=== PATIENT | female | born 1945 | race Caucasian/White ===

== ENCOUNTER 2024-01-12 06:32 | Observation (INO) ==
--- NOTE | 2023-12-21 11:17 | PAT Medication Instructions ---
Medication Instructions Date of Service December 21, 2023 Home Medications ascorbate calcium (vitamin C) 500 mg tablet 500 mg PO QAM atenolol 25 mg tablet 25 mg PO QAM multivitamin 1 tab PO QAM polyethylene glycol 3350 17 gram/dose oral powder (Miralax) 17 g PO QAM zolpidem 10 mg tablet 5 mg PO HS PRN Sleep cetirizine 10 mg capsule (Zyrtec) 10 mg PO DAILY PRN Allergy Symptoms cholecalciferol (vitamin D3) 125 mcg (5,000 unit) tablet (Vitamin D3) 125 mcg PO QAM hydrochlorothiazide 25 mg tablet 25 mg PO QAM magnesium 250 mg tablet 250 mg PO HS MEDICATION INSTRUCTIONS: DO NOT take the morning of surgery ascorbate calcium (vitamin C) 500 mg tablet 500 mg PO QAM multivitamin 1 tab PO QAM polyethylene glycol 3350 17 gram/dose oral powder (Miralax) 17 g PO QAM cetirizine 10 mg capsule (Zyrtec) 10 mg PO DAILY PRN Allergy Symptoms cholecalciferol (vitamin D3) 125 mcg (5,000 unit) tablet (Vitamin D3) 125 mcg PO QAM hydrochlorothiazide 25 mg tablet 25 mg PO QAM Take morning of surgery With a small sip of water, OTHERWISE NOTHING TO EAT OR DRINK AFTER MIDNIGHT: atenolol 25 mg tablet 25 mg PO QAM Take evening before surgery zolpidem 10 mg tablet 5 mg PO HS PRN Sleep magnesium 250 mg tablet 250 mg PO HS Other Notes If you have any questions please call us at [phone] or [phone] or [phone] or [phone]
--- NOTE | 2023-12-28 15:04 | Anesthesiology Consultation ---
Date of Service December 28, 2023 Assessment & Plan (1) Encounter for pre-operative examination: - Infectious disease screening: Per assessment on 12/28/23: No known infectious disease contacts or current infectious disease symptoms. No noted recent Covid positive test result. - Cardiology visit (06/13/23): "Patient presents for preoperative cardiac evaluation prior to right total knee replacement.. I reviewed her ECGs and prev ious ECGs which showed sinus rhythm with nonspecific ST abnormalities in the lateral leads overall no significant change compared to prior ECGs.. - Patient doing well today. She denies chest pain, dyspnea, syncope. On clinical exam she is euvolemic. She is easily able to get to more than 4 Mets of activity without any exertional symptoms. She has nonspecific ST abnormalities in the lateral leads which were present on her previous EKG in 2019 and have not worsened or changed. Patient is asymptomatic from a cardiac standpoint and very active as she exercises up to 3 times a week at her gym. She is low risk from cardiac standpoint for her right total knee replacement." - Outpatient joint assessment: Pt currently scheduled for inpatient pathway. If surgeon requests review for outpatient joint pathway, patient is not recommended candidate for outpatient joint program from anesthesia standpoint based upon available information. Chart Review Chart Review: Acceptable Risk for Surgery and Patient seen in Pre Admission Testing Teaching & Discussion Pre-Anesthesia Teaching/Discussion Notes: Instructed NPO after midnight before surgery,except medications with 15 cc of water. Medication instructions provided according to the PAT guidelines. History Surgery Operation Date: 01/12/24 08:50 Proposed Procedures p Right Total Knee Arthroplasty - Randy Zapata MD Height/Weight Height: 5 ft 5 in Weight: 75.5 kg Allergies Allergy/AdvReac Type Severity Reaction Status Date / Time Penicillins Allergy red Verified 12/19/23 14:02 splotchy face, rash Sulfa (Sulfonamide Allergy red Verified 12/19/23 14:02 Antibiotics) splotchy face, rash Medications Home Medications Medication Instructions Recorded Confirmed Last Taken ascorbate calcium (vitamin C) 500 500 mg PO QAM 01/05/21 12/19/23 Unknown mg tablet atenolol 25 mg tablet 25 mg PO QAM 01/05/21 12/19/23 Unknown multivitamin 1 tab PO QAM 01/05/21 12/19/23 Unknown polyethylene glycol 3350 17 17 g PO QAM 01/05/21 12/19/23 Unknown gram/dose oral powder (Miralax) zolpidem 10 mg tablet 5 mg PO HS PRN Sleep 01/05/21 12/19/23 Unknown cetirizine 10 mg capsule (Zyrtec) 10 mg PO DAILY PRN Allergy Symptoms 12/19/23 12/19/23 Unknown cholecalciferol (vitamin D3) 125 125 mcg PO QAM 12/19/23 12/19/23 Unknown mcg (5,000 unit) tablet (Vitamin D3) hydrochlorothiazide 25 mg tablet 25 mg PO QAM 12/19/23 12/19/23 Unknown magnesium 250 mg tablet 250 mg PO HS 12/19/23 12/19/23 Unknown Fosamax WK 12/28/23 Unknown Past Medical History Medical History BCC (basal cell carcinoma of skin) s/p Mohs (face) CKD (chronic kidney disease) Stage III Hiatal hernia "small" History of COVID-2019, taken to [facility] overnight; dehydrated, syncope, altered taste/smell>resolved w/altered taste/smell 07/2023 (home test)- mild cold symptoms for 2 days > resolved History of neuropathy BL LEs History of palpitations Chronic/long-term issue s/p cardio workup including holter monitor (most recent 2012)- no significant findings Reason for Atenolol Hx of basal cell carcinoma Hypertension Kidney cysts Under surveillance Right knee DJD TMJ arthritis No clicking/locking, previous "severe headaches" Urinary incontinence Occasional Exercise / Class Metabolic Activity II 4-5 Yardwork/Stairs/Walk up hill (one FS: No CP, no SOB) Past Family History Family History Sister Breast cancer Father Cancer Colorectal cancer Brother Cancer Aunt Diabetes Brother Diabetes Past Surgical History Surgical History H/O colonoscopy History of Mohs micrographic surgery for skin cancer BCC (face) Hx of basal cell carcinoma excision back Hx of unilateral oophorectomy age 9, rt side due to dermoid cyst on ovary and appendix removed at the same time [place] teeth extracted Past Anesthesia History No Hx of Anesthesia Complications and No Family Hx of Anesthesia Complications History of PONV No Hx of PONV and No Hx of Motion Sickness Social History Smoking Status: Never smoker Do You Dip or Chew Tobacco: No Hx Alcohol Use: No Hx Substance Use: No substance use type: does not use Review of Systems Patient denies chest pain, shortness of breath, dyspnea on exertion, fever, chills, cough, wheezing. Physical Exam Vital Signs BP 168/83 P 73 TEMP 98.2 SP02 94%RA RESP 16 Physical Full cervical extension range of motion. Full TMJ range of motion. TMD 3 finger breaths Mallampati Score 3 Dentition: intact, + crowns (sides) Lungs: clear throughout to auscultation Cardiac: regular rate and rhythm, no murmurs noted Spine: normal Carotid arteries: negative bruit Extremities: no LE edema Lab Results Anesthesia Preop Results Results Anesthesia Widget: WBC 9.09 K/ul (4.8-10.8) 12/28/23 Hgb 13.6 g/dl (12.0-16.0) 12/28/23 Hct 41.4 % (37.0-47.0) 12/28/23 Plt 336 K/uL (130-400) 12/28/23 Na 136 mmol/L (136-145) 12/28/23 K 3.9 mmol/L (3.5-5.1) 12/28/23 Cl 101 mmol/L (98-107) 12/28/23 CO2 27 mmol/L (21-32) 12/28/23 BUN 24 mg/dl (6-23) H 12/28/23 Creat 1.01 mg/dl (0.6-1.2) 12/28/23 Glucose Level 102 mg/dl (70-99(Fasting)) H 12/28/23 PT 10.6 Seconds (9.0-12.0) 12/28/23 PTT 28 Seconds (21-31) 12/28/23 INR 1.0 (0.9-1.1) 12/28/23 Blood Type O Negative 12/28/23 Antibody Screen NEGATIVE 12/28/23 Testing Electrocardiogram Date: 06/05/[address]/TWA, consider lateral ischemia. No significant change compared to 10/05/2020 per [facility] drm consultant comparison. EKG reviewed at cardiology office visit 06/13/23* Chest X-Ray Date: 12/28/23 FINDINGS: Lung volumes are normal. Lungs are clear. There is no pneumothorax or pleural effusion. Cardiac size is normal. Mediastinal contours are normal. There is no evidence for pulmonary edema. IMPRESSION: No acute cardiopulmonary findings.
[~2024-01-12 06:32] MED LIST: BUPIVACAINE 0.5 % 5 MG/1 ML PF 10ML VIAL ONE; ROPIVACAINE 0.5% 5 MG/ML 30 ML VIAL ONE
--- NOTE | 2024-01-12 06:54 | History & Physical Bridge Note ---
Date of Service January 12, 2024 History & Physical Bridge Note I have examined the patient, reviewed the History & Physical and in the interval since the performance of the History & Physical I have noted the following changes of clinical significance: no changes noted
[2024-01-12] MEDS: ACETAMINOPHEN 500 MG TAB PO SCH ×2 (07:20→15:11)
[2024-01-12] MEDS: METOCLOPRAMIDE HCL 10 MG TABLET PO SCH (07:21)
[2024-01-12] MEDS: LR 60ML/HR IV SCH (07:21)
[2024-01-12] MEDS: FAMOTIDINE 20 MG TAB PO SCH (07:21)
[2024-01-12] MEDS: dexAMETHasone**PF** 10 MG/ML VIAL IV SCH (07:21)
[2024-01-12] MEDS: LR 500ML BOLUS, THEN 15ML/HR IV SCH (07:21)
[2024-01-12] MEDS: ALLERGY Noted to ORDERED Medication SCH (07:22)
[2024-01-12] MEDS ORDERED: MIDAZOLAM HCL 1 MG/ML 2ML VIAL ONE (08:11)
[2024-01-12] MEDS ORDERED: fentaNYL citrate PF 100 MCG/2 ML VIAL ONE (08:11)
[2024-01-12] MEDS ORDERED: PROPOFOL IV EMULSION 10 MG/ML 20 ML VIAL IV ONE (08:30)
[2024-01-12] MEDS: ceFAZolin 2000MG 2,000 MG/15 ML SYR IV SCH (09:12)
[2024-01-12] MEDS: TRANEXAMIC ACID 1,000 MG **IV Intra-op IV SCH (10:06)
[2024-01-12] MEDS: ORTHO JOINT ANESTHETIC ONE (10:09)
[2024-01-12] MEDS ORDERED: ePHEDrine sulfate 50 MG/ML AMP ONE (10:17)
[2024-01-12] MEDS: ROPIV 0.5% 246mg, Ketorolac 30mg, EPINEPHrine 0.5mg in NSS INFIL SCH (10:32)
--- NOTE | 2024-01-12 10:56 | Operative Report ---
PG Post Operative Report Pre & Post Diagnosis Operation Date: 01/12/24 08:50 Pre-Op Diagnosis: Right Knee Degenerative Joint Disease Post-Op Diagnosis: Right Knee Degenerative Joint Disease I identified the patient and participated in the time-out.: Yes Procedure Operation Date: 01/12/24 08:50 Actual Procedures p Right Total Knee Arthroplasty(Right) - Randy Zapata MD Surgeon Randy Zapata MD Senior Qa Tester Jose Stout PA-C Estimated Blood Loss 50 Findings Consistent with Post-Op Diagnosis Operative findings were advanced right knee DJD. She had extensive grade 4 [id number] disease of the medial and patellofemoral compartments. Less severe disease laterally. She had a varus deformity to her knee. Osteophytes primarily medially. Fairly diffuse osteopenia. Specimens Right knee sent for pathology. Anesthesia Type Spinal MAC Complications none Disposition Accompanied Patient To Recovery: No Indications Patient is 78-year-old female is had a several year history of increasing right knee pain discomfort. She been through extensive conservative treatments became less successful over time. X-rays show advanced right knee DJD. She was actually scheduled for knee replacement on multiple occasions elsewhere but canceled. She is now elected to proceed with total knee arthroplasty at our institution. Description of Procedure Operative implants consisted of: 1 Biomet Vanguard size 65 right Po stabilized femoral component. 2. Biomet size 67 tibial tray. 3. 10 mm post stabilized polyethylene insert. 4. 28 x 8 all poly patella. The patient was taken the operating, identified, placed on the operating table in the supine position. All contact areas were appropriately padded. IV antibiotics arrived by the anesthesia team. A spinal anesthetic and abductor canal block had been provided in the holding area. A Bryant catheter was placed in sterile fashion. Right Tetrick was then placed in the right lower extremities then prepped and draped in usual sterile fashion. The right leg was elevated and exsanguinated with use of an Esmarch and tourniquet placed at 300 mmHg. An anterior approach to the right knee was then performed to longitudinal incision centered over the patella. Sharp dissection was carried through subcutaneous tissue down the extensor mechanism. Medial parapatellar arthrotomy incision was made. Some subperiosteal dissection was carried out medially. The fat pad was resected from Neath patella tendon. Lateral patellofemoral ligament was released. Patella subluxated laterally knee was flexed. The osteophytes were taken off the distal femur. The ACL and PCL were then released from distal femur the tibia subluxated anteriorly. The external treatment line jig was then placed the interface the tibia and adjusted 14 mm medially. Proximal tibial cut was made to take about a millimeter or 2 of bone from the medial side. Tibia sized to a size 67. Attention drawn the femur. The distal femur then with a sharp drill. Intramedullary canal was suction. A right 5 degree valgus cutting guide was placed. The distal femoral cutting block was pinned in place. Distal femoral cut was made take an additional 3 mm of bone off distal femur. The femur was then sized. We downsize this to a 67.5 from close to a 70. The AP cutting block was pinned parallel to the epicondylar axis which was 3 degrees of external rotation. The anterior cut, anterior chamfer, posterior cut, posterior chamfer cuts were made. I then went to place the box cutting guide and it really looks to wide on the medial lateral dimensions. Therefore I assessed the anterior cortex and felt I could downsize this to a size 65 without change in the flexion or extension gap. The 65 cutting block was placed. I then just recut the anterior and anterior chamfer cuts. Great care was taken to prevent notching of the anterior femur. The box cutting guide was then placed and the box cut was made. The knee was flexed. The remnants of the medial and lateral menisci were excised. The osteophytes taken off the posterior aspect the femur. A trial femoral component was placed for the tibial tray was pinned Smita external rotation and the drill and stem punch used to create defect in proximal tibia for the tibial tray. Knee was then trialed and the 10 mm insert fit most appropriately. Attention drawn the patella. The patella was cleaned of all soft tissues. Patella thickness measured 21 mm in thickness. It was cut down to about to 14. Was sized to a size 28 patella. The locals were drilled for the 28 patella. The lateral osteophyte was removed. Patella button was placed. Knee was taken through range of motion and the patella tracked nicely with no thumbs test. Attention drawn to placing permanent components. Nupathe all trial components were removed. A bone plug was placed in the distal femur limit blood loss. A double batch [place] G cement was mixed. [employer] Vanguard size 65 right Po stabilized femoral component, size 67 the tibial tray, a 10 mm post stabilized polyethylene insert, and a 28 x 8 all poly patella then cemented in place. The knee was brought out into full extension till cement hardened. Final cement check was then performed. The pericapsular tissues were injected with total of 100 cc of orthopedic joint mix. The patient did receive 1 g tranexamic acid. The tourniq uet was then let down for final tourniquet time of 49 minutes. Hemostasis assured use electrocautery. Extensor Meclomen closed with combination 1 PDS suture #1 Vicryl suture in a [id number] fashion. Extensor Meclomen checked found to be intact the subcutaneous tissue was then closed with 2 Dexon suture in a buried and interrupted fashion. Skin was closed skin donnie. Leg was then cleaned and dried and a sterile dressing with Xeroform, 4 fours, sterile cast padding, Gigi bandage were applied. Patient then transferred to the recovery room in stable condition. The patient tolerated the procedure well and there were no complications. Jose Stout, my physician assistant to the director, was present for the entire procedure. His assistance was essential and required for appropriate patient positioning, prepping and draping, surgical exposure, performing the technical details of the operation, placement the implants, closure of the wound, and placement of the sterile bandage. I attest to the content of the Intraoperative Record and any orders documented therein. Any exceptions are noted below.
--- NOTE | 2024-01-12 11:21 | Anesthesiology Progress Note ---
Date of Service January 12, 2024 Anesthesia Post Procedure Vital Signs Vital Signs: Temp Pulse Resp BP Pulse Ox O2 Del Method O2 Flow Rate 01/12/24 11:10 90 20 115/48 L 100 Room Air 01/12/24 11:00 85 19 123/53 L 100 Oxymask 6 01/12/24 10:52 36 C L 86 23 95/41 L 100 Oxymask 6 01/12/24 07:06 36.9 C 65 20 179/88 H 97 Room Air Notes Mental Status: alert / awake / arousable Patient Amnestic to Procedure: Yes Nausea / Vomiting: adequately controlled Pain: adequately controlled Airway Patency, RR, SpO2: stable & adequate BP & HR: stable & adequate Hydration State: stable & adequate Neuraxial Anesthesia: was administered and sensory block is resolving Anesthetic Complications: no major complications apparent
--- NOTE | 2024-01-12 11:44 | XRay Report ---
RIGHT KNEE 2 VIEWS History: Right total knee arthroplasty. Degenerative arthritis. Postop. FINDINGS: The patient is status post a right total knee arthroplasty. The hardware is intact. No frac ture or dislocation. Skin donnie are in place. IMPRESSION: Right total knee arthroplasty. No evidence for hardware complication. ACT 112: Negative or not required by law. Electronically signed by: Andrez Ponce M.D. 01/12/2024 11:43 AM
[2024-01-12] MEDS ORDERED: MAGNESIUM HYDROXIDE SUSP 30 ML UDC PO PRN (12:24)
[2024-01-12] MEDS ORDERED: METOCLOPRAMIDE HCL INJ 5 MG/ML 2 ML VIAL IV PRN (12:24)
[2024-01-12] MEDS ORDERED: bisacodyL 10 MG SUPP PR PRN (12:24)
[2024-01-12] MEDS ORDERED: ALUMINUM/MAGNESIUM SUSP 30 ML UDC PO PRN (12:24)
[2024-01-12] MEDS ORDERED: ONDANSETRON INJ 2 MG/ML 2 ML VIAL IV PRN (12:24)
[2024-01-12] MEDS ORDERED: NALOXONE HCL 0.4 MG/1 ML VIAL/CARP IV PRN (12:24)
[2024-01-12] MEDS ORDERED: HYDROmorphone INJ 0.5 MG/0.5 ML SYR IV PRN (12:24)
[2024-01-12] MEDS ORDERED: CETIRIZINE HCL 10 MG TABLET PO PRN (12:34)
[2024-01-12] MEDS: KETOROLAC TROMETHAMINE 15 MG/ML VIAL IV SCH (13:24)
[2024-01-12] MEDS: SODIUM CHLORIDE 0.9% 1,000 ML IV SCH (13:24)
[2024-01-12] MEDS: TRANEXAMIC ACID / 0.7% NACL 1,000 MG/100 ML BAG IV SCH (16:55)
[2024-01-12] MEDS: ASCORBIC ACID 500 MG TAB PO SCH (16:55)
[2024-01-12] MEDS: ceFAZolin 1000MG 1,000 MG/7.5 ML SYR IV SCH (16:55)
[2024-01-12] MEDS: ASPIRIN 81 MG ECTAB PO SCH (20:29)
[2024-01-12] MEDS: SENNA 8.6 MG TAB PO SCH ×2 (20:29→20:32)
[2024-01-12] MEDS: MAGNESIUM OXIDE 400 MG TAB PO SCH (20:29)
[2024-01-12] MEDS: DOCUSATE SODIUM 100 MG CAP PO SCH (20:30)
[2024-01-12] MEDS: ZOLPIDEM TARTRATE 5 MG TAB PO PRN (23:04)
--- OUTSIDE RECORDS SUMMARY | 2024-01-13 03:31 | External Medical Summary | Summary of Care ---
Author Name Unknown Organization [facility] Address [address] [address] Phone [phone] Care Team Providers Care Defensive Line Coach Name Role Phone Anne Workman MD Primary Care Provider [phone] Reason for Visit * Reason Onset Date Comments Medication Refill 01/04/2024 Encounter Details Date Type Department Care Team (Late st Contact Info) Description 01/04/2024 Refill [facility], [place] [address] [place] [address] Anne Workman MD [address] [facility] [address] Insomnia Allergies Active Allergy Reactions Criticality Noted Date Comments Penicillins High 04/16/1994 hives, swelling of face and throat Sulfa Antibiotics 04/17/1995 eyes swelling, hives documented as of this encounter (statuses as of 01/05/2024) Medications Medication Sig Dispensed Refills Start Date End Date Status MULTIVITAMIN TABS OR Take 1 Tablet by mouth daily. 0 09/10/2003 Active MIRALAX PO POWDIndications:Un specified constipation Dissolve one heaping tablespoon in 8 ounces of water or juice - one dose per day as needed for severe constipation 1 Bottle 2 06/07/2010 Active VITAMIN D 1000 UNITS PO CAPS Take 1 Capsule by mouth in the morning. 30 Cap 11 08/24/2013 Active Vitamin C 500 MG Oral Tablet (Ascorbic Acid) Take 1 Tablet by mouth in the morning. 0 08/19/2022 Active hydroCHLOROthiazid e 25 MG Oral Tablet (Hydrodiuril)Indic ations:HTN, goal to be determined TAKE ONE TABLET BY MOUTH EVERY MORNING 90 Tablet 3 02/03/2023 4 Active ZyrTEC Allergy 10 MG Oral Capsule (Cetirizine HCl) Take 1 Capsule by mouth in the morning. 0 Active Famotidine 20 MG Oral Tablet Take 1 Tablet by mouth 2 times a day as needed for Heartburn. 0 Active Atenolol 50 MG Oral Tablet (Tenormin) TAKE ONE-HALF TABLET BY MOUTH EVERY DAY FOR BLOOD PRESSURE 45 Tablet 1 2023 4 Active Alendronate Sodium 70 MG Oral Tablet (Fosamax)Indicatio ns:Age-related osteoporosis without current pathological fracture TAKE ONE TABLET BY MOUTH ONCE WEEKLY 12 Tablet 1 12/18/2023 5 Active Zolpidem Tartrate 10 MG Oral Tablet (Ambien)Indication s:Insomnia TAKE 1/2 TO 1 TABLET BY MOUTH AT BEDTIME NEEDED for sleep 30 Tablet 0 01/05/2024 Active Zolpidem Tartrate 10 MG Oral Tablet (Ambien)Indication s:Insomnia TAKE 1/2 TO 1 TABLET BY MOUTH AT BEDTIME NEEDED FOR SLEEP 30 Tablet 0 11/27/2023 4 Discontinue d(Refill) documented as of this encounter (statuses as of 01/05/2024) Active Problems Problem Noted Date Diagnosed Date Basal cell carcinoma (BCC) of skin of face 10/30 Overview: R pre auriclar area Lumbar radiculopathy, chronic 10/30/2020 Overview: left Hypertensive kidney disease with chronic kidney disease stage III 12/05/2019 Overview: Combination code Psychophysiological insomnia 06/21/2019 Age-related osteoporosis wit hout current pathological fracture 12/01/2017 Overview: updated code on PL due to AMP error Hyperlipidemia with target LDL less than 130 10/2017 Urge incontinence 07/11/2014 HTN, goal below 140/90 09/16/2009 Overview: Modified per HTN protocol #16. Personal history of malignant neoplasm of skin 0 06/08/2009 Overview: History Basal Cell Carcinoma-back/173.51 Disseminated Superficial Actinic Porokeratoses 0 06/08/2009 ADVANCE DIRECTIVE INFORMATION 06/29/2005 Overview: No, Advance Directive brochure given to patient at prior appointment. GENERAL OSTEOARTHROSIS Menopausal and postmenopausal disorder Allergic rhinitis Vitamin D deficiency Small fiber neuropathy documented as of this encounter (statuses as of 01/05/2024) Resolved Problems Problem Noted Date Diagnosed Date Resolved Date Benign hypertension with chr onic kidney disease, stage III 12/14/2020 09/18/2023 Acute kidney injury (nontraumatic) 10/05/2020 10/08/2020 Diarrhea 10/05/2020 10/08/2020 COVID-19 10/05/2020 10/08/2020 Dizziness 10/05/2020 10/08/2020 Fall 10/05/2020 10/08/2020 Disseminated superficial act inic porokeratosis (DSAP) 05/05/2016 11/30/2017 Personal history of malignan t neoplasm of skin 05/05/2016 11/30/2017 Overview: History Basal Cell Carcinoma-back///C44. Osteoporosis 11/24/2015 11/30/2017 Kidney disease, chronic, sta ge III (GFR 30-59 ml/min) 12/23/2013 11/25/2015 Overview: Per CKD protocol #1 Family history of colon cancer 03/14/2003 11/30/2017 HYPERTENSION NOS 03/14/2003 09/17/2009 Overview: Modified per HTN protocol #16. FX ANKLE NOS-CLOSED 03/10/2000 06/20/20 19 Need for prophylactic hormon e replacement therapy (postmenopausal) 07/30/2003 Osteoporosis 12/06/2018 Pain in limb 07/02/1999 Dyslipidemia, goal to be determined 11/25/2015 Back disorder 06/20/2019 CKD (chronic kidney disease) stage 3, GFR 30-59 ml/min 12/11/2019 documented as of this encounter (statuses as of 01/05/2024) Immunizations Name Administration Dates Next Due COVID-19 mRNA, LNP-s, No Pre serve, 2-Dose Series (Pfizer) 09/01/2021,01/20/2021,12/25/2020 PPD 08/12/2011,07/21/2008,05/03/2006 Pneumococcal Conjugate Vacc, 13 Valent (Prevnar) 02/10/2015 Pneumococcal Polysaccharide PPV23 (Pneumovax) 01/16/2013 Seasonal Influenza, PF, 6 M & above, IM , (FluLaval or Fluzone) 07/24/2020,08/10/2018,08/17/2017 Seasonal Influenza, Quadriva lent Hd (Fluzone Hd) 08/05/2023,08/19/2022,07/28/2021 Seasonal Influenza, Quadriva lent, No Preserve, IM 08/18/2016 Seasonal Influenza, Split, I IV3, With Preserve, Inj 09/11/2014,08/23/2013,08/17/2012,08/12,08/06/2010,07/24/2009,09/10/2008 ,08/15/2007,08/09/2006 Seasonal Influenza, Trivalen t, Adjuvanted, 65+ yrs 08/22/2019 Seasonal Influenza, Trivalen t, High Dose, No Preserve, IM 08/27/2015 TD, Preservative Free 07/24/2020 TDAP (age 11 and older)(Adacel) 06/23/2010 Varicella Zoster Vaccine (Adult) 08/03/2013 Zoster Vaccine Recombinant (Shingrix) 11/17/2020 ,08/07/2020 documented as of this encounter Social History Tobacco Use Types Packs/Day Years Used Date Smoking Tobacco: Never Smokeless Tobacco: Never Alcohol Use Standard Drinks/Week Comments No 0 (1 standard drink = 0.6 oz pur e alcohol) PHQ-2 Answer Date Recorded PHQ Adult Total Score 0 03/24/2023 Hunger Vital Sign Answer Date Recorded Within the past 12 months, y ou worried that your food would run out before you got the money to buy more. Never true 03/24/20 23 Within the past 12 months, t he food you bought just didn't last and you didn't have money to get more. Never true 03/24/2023 Sex and Gender Information Value Date Recorded Sex Assigned at Female 06/21/2019 9:05 AM EDT Gender Identity Not on file Sexual Orientation Straight 03/24/2023 11 :17 AM EDT Sexual Orientation Choose not to disclose 2022 11:17 AM EDT Job Start Date Occupation Industry Not on file Not on file Not on file documented as of this encounter Functional Status Functional Status Response Date of Assess ment Are you deaf or do you have serious difficulty h earing? No 10/05/2020 Are you blind or do you have serious difficulty seeing, even when wearing glasses? No 10/05/2020 Do you have serious difficul ty walking or climbing stairs? (5 years old or older) No 10/05/2020 Do you have difficulty dress ing or bathing? (5 years old or older) No 10/05/2020 Because of a physical, menta l, or emotional condition, do you have difficulty doing errands alone such as visiting a doctor s office or shopping? (15 years old or older) No 10/05/20 20 Cognitive Status Response Date of Assessm ent Because of a physical, menta l, or emotional condition, do you have serious difficulty concentrating, remembering, or making decisions? (5 years old or older) No 10/05/2020 documented as of this encounter Miscellaneous Notes * Telephone Encounter - Anne Workman MD - 01/05/2024 3:26 PM ESTSigned Prescriptions: Disp Refills Zolpidem Tartrate 10 MG Oral Tablet (Ambie*30 Tab*0 Sig: TAKE 1/2 TO 1 TABLET BY MOUTH AT BEDTIME NEEDED for sleep Authorizing Provider: ANNE WORKMAN * Telephone Encounter - Elisha Chavez [facility] - 01/05/2024 2:53 PM EST Pending Prescriptions: Disp Refills Zolpidem Tartrate 10 MG Oral Tablet (Ambie*30 Tab*0 Sig: TAKE 1/2 TO 1 TABLET BY MOUTH AT BEDTIME NEEDED for sleep * Telephone Encounter - Elisha Chavez [facility] - 01/05/2024 2:53 PM EST I have reviewed the patients controlled substance dispensing history in the Prescription Drug Monitoring Program in compliance with the [facility] regulations before prescribing a controlled substance. PDMP checked on 01/05/2024. Pending Prescriptions: Disp Refills Zolpidem Tartrate 10 MG Oral Tablet (Ambi*30 Tab*0 Sig: TAKE 1/2 TO 1 TABLET BY MOUTH AT BEDTIME NEEDED for sleep Last Visit: 06/12/2023 (in office), Visit date not found (telemedicine) Next Visit: 01/16/2024 Date medication was last filled: 11/27/23 Date medication is due for refill: 12/26/23 Pharmacy: [id number] [place] Is this request for a controlled substance? Yes and Urine Drug Screen Not completed Toxicology results: No results found for this or any previous visit. Please approve if appropriate. Thanks, Elisha Chavez [facility] Clinical Pharmacist [facility] ([facility]) (Formerly Telepharmacy) [phone] documented in this encounter Plan of Treatment Upcoming Encounters Date Type Department Care Team (Late st Contact Info) Description 01/16/2024 2:20 PM EDT Office Visit [facility], [place] [address] [facility] [place] [address] Anne Workman MD [address] [facility] [place] [address] 02/29/2024 9:00 AM EDT Office Visit Dermatology, Kristine Balbuena [address] [place] [address] [place] [address] Darshana Polanco PA-C [address] [place] [address] [place] [address] 07/26/2024 9:00 AM EDT [facility] Visit [facility], [place] [address] [facility] [place] [address] Anne Workman MD [address] [place] [address] Scheduled Procedures Name Priority Associated Diagnoses Date/Ti me COLONOSCOPY FLEXIBLE PROXIMAL DIAGNOSTIC Recall History of colon polyps Health Maintenance Due Date Last Done Comments COVID-19 Vaccine ( season) 2023 09/01/2021, 01/20/2021, 12/25/2020 GFR 09/17/2023 03/17/2023, 07/31, 12/15/2021, Additional history exists Albumin/Creatinine Ratio 03/17/2024 023, 12/15/2021, 11/25/2015, Additional history exists CKD PHOS USE SMARTSET 70965 03/17/202402/27, 12/15/2021, 06/14/2021, Additional history exists Depression Screening 03/24/2024 03/24/2023 CKD HGB USE SMARTSET 50417 06/05/202406/05, 06/05/2023, 03/17/2023, Additional history exists DXA Scan 03/31/2025 03/31/2023, 01/2021, 02/28/2019, Additional history exists DTaP,Tdap,and Td Vaccines (3 - Td or Tdap) 07/24/2030 07/24/2020, 06/23/2010, 06/23/2004, Additional history exists Hepatitis B Completed 01/26/1992, 07/31, 06/26/1991 Pneumococcal Vaccine: 65+ Years Completed 02/10/2015, 01/16/2013 Fecal Occult Blood Test Discontinued 11/28/19 17, 11/25/2015, 09/11/2014, Additional history exists VITAMIN D LEVEL ONCE IN A LIFETIME-USE SMARTSET# [id number] Completed 06/21/2019, 02/21/2014, 08/23/2013, Additional history exists Zoster Vaccines Completed 11/17/2020, 06/2020, 08/03/2013 Colonoscopy Discontinued 04/11/2023, 03/30, 03/14/2013, Additional history exists Colorectal Cancer Screening Discontinued Influenza Vaccine (FLU shot) Completed 08/05/2023, 08/19/2022, 07/28/2021, Additional history exists Cologuard Discontinued GARDASIL-HPV IMMUNIZATION SERIES Aged Out No longer eligible based on patient's age to complete this topic MENINGOCOCCAL (MENACTRA/MENVEO) Aged Out No longer eligible based on patient's age to complete this topic Sigmoidoscopy Discontinued documented as of this encounter Medical Devices Not on filedocumented as of this encounter Visit Diagnoses Diagnosis Insomnia Insomnia, unspecified documented in this encounter Advance Directives Latest Code Status on File Code Status Date Activated Date Inactivated Comments Full Code 10/05/2020 4:39 PM 10/06/2020 8:17 PM This order reflects the patients wishes and were consensually agreed upon. Care Teams Defensive Line Coach Relationship Specialty Start Date End Date Anne Workman MD [address] [place] [address] PCP - General 06/13/1996 documented as of this encounter
--- OUTSIDE RECORDS SUMMARY | 2024-01-13 03:31 | External Medical Summary | Summary of Care ---
Author Name Unknown Organization [facility] Address [address] [address] Phone [phone] Care Team Providers Care [employer] Name Role Phone Anne Workman MD Primary Care Provider [phone] Reason for Visit * Reason Comments eRx-Medication Refill Encounter Details Date Type Department Care Team (Late st Contact Info) Description 01/09/2024 Refill [facility], [place] [address] [place] [address] Anne Workman MD [address] [place] [address] Insomnia Allergies Active Allergy Reactions Criticality Noted Date Comments Penicillins High 04/16/1994 hives, swelling of face and throat Sulfa Antibiotics 04/17/1995 eyes swelling, hives documented as of this encounter (statuses as of 01/10/2024) Medications Medication Sig Dispensed Refills Start Date End Date Status MULTIVITAMIN TABS OR Take 1 Tablet by mouth daily. 0 09/10/2003 Active MIRALAX PO POWDIndications:U nspecified constipation Dissolve one heaping tablespoon in 8 [...] mouth in the morning. 0 08/19/2022 Active hydroCHLOROthiazi de 25 MG Oral Tablet (Hydrodiuril)Catina cations:HTN, goal to be determined TAKE ONE TABLET BY MOUTH EVERY MORNING 90 Tablet 3 02/03/2023 02/03/20 24 Active ZyrTEC Allergy 10 MG Oral Capsule (Cetirizine HCl) Take 1 Capsule by mouth in the morning. 0 Active Famotidine 20 MG Oral Tablet Take 1 Tablet by mouth 2 times a day as needed for Heartburn. 0 Active Atenolol 50 MG Oral Tablet (Tenormin) TAKE ONE-HALF TABLET BY MOUTH EVERY DAY FOR BLOOD PRESSURE 45 Tablet 1 2023 09/05/20 24 Active Alendronate Sodium 70 MG Oral Tablet (Fosamax)Indicati ons:Age-related osteoporosis without current pathological fracture TAKE ONE TABLET BY MOUTH ONCE WEEKLY 12 Tablet 1 12/18/2023 12/17/19 25 Active Zolpidem Tartrate 10 MG Oral Tablet (Ambien)Indicatio ns:Insomnia TAKE 1/2 TO 1 TABLET BY MOUTH AT BEDTIME NEEDED FOR SLEEP 30 Tablet 0 01/10/2024 Active Zolpidem Tartrate 10 MG Oral Tablet (Ambien)Indicatio ns:Insomnia TAKE 1/2 TO 1 TABLET BY MOUTH AT BEDTIME NEEDED for sleep 30 Tablet 0 01/05/2024 01/10/20 24 Discontinued documented as of this encounter (statuses as of 01/10/2024) Active Problems Problem Noted Date Diagnosed Date [...] as of this encounter (statuses as of 01/10/2024) Resolved Problems Problem Noted Date Diagnosed Date [...] as of this encounter (statuses as of 01/10/2024) Immunizations Name Administration Dates Next Due COVID-19 [...] (15 years old or older) No 10/05/20 Cognitive Status Response Date of Assessm ent Because of a physical, menta l, or emotional condition, do you have serious difficulty concentrating, remembering, or making decisions? (5 years old or older) No 10/05/2020 documented as of this encounter Miscellaneous Notes * Telephone Encounter - Anne Workman MD - 01/10/2024 10:35 AM EDTSigned Prescriptions: Disp Refills Zolpidem Tartrate 10 MG Oral Tablet (Ambie*30 Tab*0 Sig: TAKE 1/2 TO 1 TABLET BY MOUTH AT BEDTIME NEEDED FOR SLEEPAuthorizing Provider: ANNE WORKMAN * Telephone Encounter - Anne Workman MD - 01/10/2024 10:33 AM EDT I have reviewed the patients controlled substance dispensing history in the Prescription Drug Monitoring Program in compliance with the [facility] regulations before prescribing a controlled substance. Last Tox Screen Results: No results found for this or any previous visit. * Telephone Encounter - Sarah Rosario, Enlighted - 01/10/2024 8:14 AM EDT Pending Prescriptions: Disp Refills Zolpidem Tartrate 10 MG Oral Tablet [Pharm*30 Tab*0 Sig: TAKE 1/2 TO 1 TABLET BY MOUTH AT BEDTIME NEEDED for sleep * Telephone Encounter - Sarah Rosario En[facility]ed - 01/10/2024 8:11 AM EDT Did you pend patient's preferred pharmacy and medication before forwarding?yes Pharmacy: [id number] Pending Prescriptions: Disp Refills Zolpidem Tartrate 10 MG Oral Tablet (Ambi*30 Tab*0 Sig: TAKE 1/2 TO 1 TABLET BY MOUTH AT BEDTIME NEEDED FOR SLEEP Last Visit: 06/12/2023 (in office), Visit date not found (telemedicine) Next Visit: 01/16/2024 If no future appointments scheduled, and last appointment is greater than a year ago, please schedule patient for a follow-up appointment Last date the medication was ordered: 01/05/2024 Is this request for a controlled substance?Yes, 01/05/2024 1/2 to 1 tablet by mouth at bedtime. No Urine completed. Urine Drug Screen:No results found for this or any previous visit. Patient Phone Numbers Labs: Lab Results Component Value Date/Time CREAT 1.0 03/17/2023 09:29 AM CREAT 0.8 10/06/2020 11:47 AM POTASSIUM 4.6 03/17/2023 09:29 AM POTASSIUM 4.0 10/06/2020 11:47 AM TSH 1.33 03/17/2023 09:29 AM TSH 1.80 07/29/2014 11:10 AM LDLCALC 151 (H) 03/17/2023 09:29 AM LDLCALC 83 10/06/2020 11:47 AM LDLDIRECT 118 06/21/2019 09:49 AM ALT 12 03/17/2023 09:29 AM ALT 17 10/05/2020 10:53 AM HGBA1C 5.8 (H) 03/17/2023 09:29 AM documented in this encounter Plan of Treatment Upcoming Encounters Date Type Department Care Team (Late st Contact Info) Description 01/16/2024 2:20 PM EDT Office Visit [facility], [place] [address] [place] [phone] Anne Workman MD [address] [facility] [place] [address] 02/29/2024 9:00 AM EDT Office Visit Dermatology, Kristine Balbuena [address] [place] [phone] Darshana Polanco PA-C [address] [place] [address] 07/26/2024 9:00 AM EDT Office Visit [facility], [place] [address] [facility] [place] [address] Anne Workman MD [address] [facility] [place] [address] Scheduled Procedures Name Priority Associated Diagnoses Date/Ti me COLONOSCOPY FLEXIBLE PROXIMAL DIAGNOSTIC Recall History of colon polyps Health Maintenance Due Date Last Done Comments COVID-19 Vaccine ( season) 2023 09/01/2021, 01/20/2021, 12/25/2020 GFR 09/17/2023 03/17/2023, 07/31, 12/15/2021, Additional history exists Albumin/Creatinine Ratio 03/17/2024 023, 12/15/2021, 11/25/2015, Additional history exists CKD PHOS USE SMARTSET 56181 03/17/202402/27, 12/15/2021, 06/14/2021, Additional history exists Depression Screening 03/24/2024 03/24/2023 CKD HGB USE SMARTSET 87730 06/05/202406/05, 06/05/2023, 03/17/2023, Additional history exists DXA Scan 03/31/2025 03/31/2023, 01/2021, 02/28/2019, Additional history exists DTaP,Tdap,and Td Vaccines (3 - Td or Tdap) 07/24/2030 07/24/2020, 06/23/2010, 06/23/2004, Additional history exists Hepatitis B Completed 01/26/1992, 07/31, 06/26/1991 Pneumococcal Vaccine: 65+ Years Completed 02/10/2015, 01/16/2013 Fecal Occult Blood Test Discontinued 11/28/19, 11/25/2015, 09/11/2014, Additional history exists VITAMIN D LEVEL ONCE IN A LIFETIME-USE SMARTSET# [id number] Completed 06/21/2019, 02/21/2014, 08/23/2013, Additional history exists [...] and were consensually agreed upon. Care Teams [employer] Relationship Specialty Start Date End Date Anne Workman MD [address] [facility] [address] [place] [address] PCP - General 06/13/1996 documented as of this encounter
[2024-01-13 07:30] LABS: Hematocrit (blood only) 31.8 % (37.0-47.0); Hemoglobin 10.5 g/dl (12.0-16.0); Mean Corpuscular Hemoglobin 28.7 pg (25.0-34.0); Mean Corpuscular Volume 86.9 fL (80.0-100.0); Mean Platelet Volume 9.8 fL (9.4-12.4); Platelet Count 262 K/uL (130-400); RDW Coefficient of Variation 12.6 % (11.5-14.5); RDW Standard Deviation 40.1 fL (36.4-46.3); Red Blood Count 3.66 M/uL (4.20-5.40); White Blood Count 16.16 K/ul (4.8-10.8)
--- NOTE | 2024-01-13 07:50 | Surgery Progress Note ---
Date of Service January 13, 2024 Assessment & Plan (1) Status post right knee replacement: Plan: 78-year-old female postop day 1 from right knee replacement doing pretty well. Pain is controlled. She is neurologically intact. Plan: 1. DVT prophylaxis including thigh-high teds, SCDs, aspirin twice a day. 2. PT/OT. Weight-bear as tolerated. Right total knee protocol. 3. Pain control doing okay with current pain regimen. 4. Disposition plan to discharge to home with some home health if she does okay in therapy today. Admission and Anticipated Discharge Date Admission Date: January 12, 2024 Subjective 78-year-old female postop day 1 from right knee replacement. She is doing pretty well. Some pain but manageable. She is did get up and walk around yesterday evening. No chest pain or shortness of breath. Not feeling dizzy or lightheaded. Physical Exam Physical Exam: Physical examination is a pleasant middle-age female. She is lying in bed looks pretty comfortable this morning. Examination of the right leg reveals the dressing be clean dry and intact. She can dorsiflex and plantarflex her foot appropriately. She is neurologically intact. Respiratory: normal respiratory effort, lungs clear to auscultation Cardiovascular: RRR, no murmur, no edema Gastrointestinal (Abdomen): normal bowel sounds, soft, nontender, no hepatosplenomegaly Results & Data Vital Signs (Past 12 Hours) Vital Signs Temp Pulse Resp BP Pulse Ox O2 Del Method 01/13/24 07:15 36.9 C 74 16 127/72 97 Room Air 01/13/24 03:34 36.7 C 80 16 126/73 97 Room Air 01/12/24 23:01 36.7 C 85 16 126/70 96 Room Air 01/12/24 21:27 Room Air Laboratory Results Hemoglobin is 10.5. Hematocrit is 31.8. Electrolytes are pending PG Care Time/CCT Total # of Minutes Spent Total Time Spent with Patient: Total time spent is greater than 50% in coordination of care (as documented) at patient's floor/unit and/or counseling patient: Coding Level of Care Code None Diagnoses Status post right knee replacement Z96.651
[2024-01-13] MEDS: dexAMETHasone 10 MG in SYRINGE 0 ML IV SCH (07:51)
[2024-01-13] MEDS: ATENOLOL 25 MG TABLET PO SCH (07:52)
[2024-01-13] MEDS: CHOLECALCIFEROL 125 MCG (5,000 UNITS) TAB PO SCH (07:52)
[2024-01-13 07:54] LABS: Calcium 8.2 mg/dl (8.6-10.3); Est GFR (African American) 66.6 ml/min; Est GFR (Non-African American) 57.4 ml/min; Potassium 3.8 mmol/L (3.5-5.1)
[2024-01-13] MEDS: hydroCHLOROthiazide 25 MG TAB PO SCH (07:55)
[2024-01-13] MEDS: MULTIVITAMIN TAB PO SCH (07:55)
[2024-01-13] MEDS: oxyCODONE HCL IR 5 MG TAB (IMMEDIATE RELEASE) PO PRN (08:19)
[2024-01-13] MEDS ORDERED: NON-FORMULARY MEDICATION (Multivitamin tablet) PO SCH (09:00)
[2024-01-13] MEDS: POLYETHYLENE (MIRALAX) 17 GM PACK PO SCH (10:23)
--- OUTSIDE RECORDS SUMMARY | 2024-01-13 13:51 | External Medical Summary | Summary of Care ---
Author Name Unknown Organization [facility] Address [address] [place] [address] Phone [phone] Care Team Providers Care Tax Compliance Manager Name Role Phone Anne Fox MD Primary Care Provider Reason for Visit * Reason Comments Medication Refill Encounter Details Date Type Department Care Team (Late st Contact Info) Description 01/12/2024 Refill [facility] [address] [place] [address] Anne Fox MD [address] [place] [address] HTN, goal to be determined Allergies Active Allergy Reactions Criticality Noted Date Comments Penicillins High 04/16/1994 hives, swelling of face and throat Sulfa Antibiotics 04/17/1995 eyes swelling, hives documented as of this encounter (statuses as of 01/12/2024) Medications Medication Sig Dispensed Refills Start Date [...] mouth in the morning. 0 08/19/2022 Active ZyrTEC Allergy 10 MG Oral Capsule [...] FOR SLEEP 30 Tablet 0 01/10/2024 Active hydroCHLOROthiazid e 25 MG Oral Tablet (Hydrodiuril)Indic ations:HTN, goal to be determined TAKE ONE TABLET BY MOUTH EVERY MORNING 90 Tablet 1 01/12/2024 5 Active hydroCHLOROthiazid e 25 MG Oral Tablet (Hydrodiuril)Indic ations:HTN, goal to be determined TAKE ONE TABLET BY MOUTH EVERY MORNING 90 Tablet 3 02/03/2023 4 Discontinue d(Refill) documented as of this encounter (statuses as of 01/12/2024) Active Problems Problem Noted Date Diagnosed Date [...] as of this encounter (statuses as of 01/12/2024) Resolved Problems Problem Noted Date Diagnosed Date [...] as of this encounter (statuses as of 01/12/2024) Immunizations Name Administration Dates Next Due COVID-19 [...] encounter Miscellaneous Notes * Telephone Encounter - Alejo Evangelista PA-C - 01/12/2024 11:25 AM EDT Signed Prescriptions: Disp Refills hydroCHLOROthiazide 25 MG Oral Tablet (Hyd*90 Tab*1 Sig: TAKE ONE TABLET BY MOUTH EVERY MORNING Authorizing Provider: ALEJO EVANGELISTA * Telephone Encounter - Destinee Camacho LPN - 01/12/2024 11:17 AM EDTPending Prescriptions: Disp Refills hydroCHLOROthiazide 25 MG Oral Tablet (Hyd*90 Tab*1 Sig: TAKE ONE TABLET BY MOUTH EVERY MORNING * Telephone Encounter - Destinee Camacho LPN - 01/12/2024 11:16 AM EDT Did you pend patient's preferred pharmacy and medication before forwarding?yes Pharmacy: [facility] Pending Prescriptions: Disp Refills hydroCHLOROthiazide 25 MG Oral Tablet (Hy*90 Tab*3 Sig: TAKE ONE TABLET BY MOUTH EVERY MORNING Last Visit: 06/12/2023 (in office), Visit date not found (telemedicine) Next Visit: 07/26/2024 If no future appointments scheduled, and last appointment is greater than a year ago, please schedule patient for a follow-up appointment Last date the medication was ordered: 02/03/2023 Is this request for a controlled substance?No Urine Drug Screen:No results found for this [...] Care Team (Late st Contact Info) Description 02/29/2024 9:00 AM EDT Office Visit Dermatology, No [facility] [address] [place] [id number] Darshana Polanco, J CARLOSC [address] [place] [id number] 07/26/2024 9:00 AM EDT Office Visit [facility] [place] [address] [facility] [address] Anne Fox MD [address] [facility] [place] [address] Scheduled Procedures Name Priority Associated Diagnoses Date/Ti me COLONOSCOPY FLEXIBLE PROXIMAL DIAGNOSTIC Recall History of colon polyps Health Maintenance Due Date Last Done Comments COVID-19 Vaccine ( season) 2023 09/01/2021, 01/20/2021, 12/25/2020 GFR 09/17/2023 03/17/2023, 07/31, 12/15/2021, Additional history exists Albumin/Creatinine Ratio 03/17/2024 023, 12/15/2021, 11/25/2015, Additional history exists CKD PHOS USE SMARTSET 71219 03/17/202402/27, 12/15/2021, 06/14/2021, Additional history exists Depression Screening 03/24/2024 03/24/2023 CKD HGB USE SMARTSET 38307 06/05/202406/05, 06/05/2023, 03/17/2023, Additional history exists DXA Scan 03/31/2025 03/31/2023, 0501/2021, 02/28/2019, Additional history exists DTaP,Tdap,and Td Vaccines (3 - Td or Tdap) 07/24/2030 07/24/2020, 06/23/2010, 06/23/2004, Additional history exists Hepatitis B Completed 01/26/1992, 07/31, 06/26/1991 Pneumococcal Vaccine: 65+ Years Completed 02/10/2015, 01/16/2013 Fecal Occult Blood Test Discontinued 11/28/19 17, 11/25/2015, 09/11/2014, Additional history exists VITAMIN D LEVEL ONCE IN A LIFETIME-USE SMARTSET# [id number] Completed 06/21/2019, 02/21/2014, 08/23/2013, Additional history exists [...] as of this encounter Visit Diagnoses Diagnosis HTN, goal to be determined Unspecified essential hypertension documented in this encounter Advance Directives Latest Code Status on File Code Status Date Activated Date Inactivated Comments Full Code 10/05/2020 4:39 PM 10/06/2020 8:17 PM This order reflects the patients wishes and were consensually agreed upon. Care Teams Tax Compliance Manager Relationship Specialty Start Date End Date Anne Fox MD [address] [place] [address] PCP - General 06/13/1996 documented as of this encounter
--- NOTE | 2024-01-16 06:36 | Discharge Summary ---
Date of Service January 16, 2024 Discharge Data Procedures Performed Operation Date: 01/12/24 08:50 Actual Procedures p Right Total Knee Arthroplasty(Right) - Randy Zapata MD Hospital Course (1) Status post right knee replacement: This is a 78 year old patient admitted on 01/12/24 and underwent total knee arthroplasty. She tolerated the procedure well and there were no complications. Transferred to the PACU post op and later to the orthopedic floor for further care. She was given ancef for antibiotic prophylaxis. She was also given OLIVERIO stockings, SCDs, and aspirin for DVT prophylaxis. Hemoglobin, hematocrit, and vital signs were monitored during her hospital stay and remained stable. Did not require any blood transfusions. There were no complications during her hospital stay. By post op day #1 the patient was tolerating a regular diet, pain was reasonably controlled with oral pain medicine, and she was participating in physical therapy. On post op day #1 the patient was discharged home and set up with home health care. She was given printed discharge instructions including prescriptions for extra strength tylenol, aspirin, cefadroxil, ketorolac, zofran, oxycodone, and senokot. Continue physical therapy, weight bearing as tolerated. Continue OLIVERIO stockings. Follow up approximately 2 weeks post op or sooner if there are problems or concerns. Coding Level of Care Code None Diagnoses Status post right knee replacement Z96.651
== END 2024-01-13 12:00 | disposition home health service (06) ==
LOC: ASU 06:32 → 3N 06:32